=== PATIENT | male | born 1960 | race Caucasian/White ===

== ENCOUNTER 2018-01-10 07:47 | Day surgery (SDC) | payer OTHER ==
[2018-01-10 09:43] LABS: ADD MAN DIFF? NO
[2018-01-10 09:54] LABS: BASOPHILS % 0.6 % (0.0-2.0); EOSINOPHILS % 0.4 % (0.0-7.0); HEMATOCRIT 47.1 % (42.0-52.0); HEMOGLOBIN 16.2 g/dl (14.0-18.0); LYMPHOCYTES # 1.9 10^3/ul (0.8-2.9); LYMPHOCYTES % 37.4 % (15.0-51.0); MEAN CORPUSCULAR HGB CONC 34.4 g/dl (32.0-37.0); MEAN CORPUSCULAR VOLUME 87.2 fl (82.0-101.0); MEAN PLATELET VOLUME 9.4 fl (7.4-10.4); MONOCYTE # 0.4 10^3/ul (0.3-0.9); MONOCYTES % 7.4 % (0.0-11.0); NEUTROPHIL # 2.7 10^3/ul (1.6-7.5); NEUTROPHILS % 53.8 % (39.0-77.0); PLATELET COUNT 288 10^3/UL (140-415)
[2018-01-10] MEDS ORDERED: CEFAZOLIN 2 GM/50 ML (PMX) 50 ML IVPB (10:00)
[2018-01-10] MEDS ORDERED: SOD CHLORIDE 0.9% 1,000 ML IV (10:00)
[2018-01-10 10:14] LABS: PROTIME 13.3 Sec (11.9-14.9)
[2018-01-10 10:15] LABS: PARTIAL THROMBOPLASTIN TIME 32.9 Sec (25.0-35.0)
[2018-01-10 10:17] LABS: ALANINE AMINOTRANSFERASE 53 IU/L (13-69); ALBUMIN 4.1 g/dl (3.3-4.9); ALBUMIN/GLOBULIN RATIO 1.32; ALKALINE PHOSPHATASE 68 IU/L (42-121); ANION GAP 11 (8-16); ASPARTATE AMINO TRANSFERASE 31 IU/L (15-46); BILIRUBIN,INDIRECT 2.4 mg/dl (0-1.1); BILIRUBIN,TOTAL 2.4 mg/dl (0.2-1.3); BLOOD UREA NITROGEN 18 mg/dl (7-20); CALCIUM 9.5 mg/dl (8.4-10.2); CARBON DIOXIDE 29 mmol/L (21-31); CHLORIDE 108 mmol/L (97-110); CREATININE 0.74 mg/dl (0.61-1.24); GLUCOSE 111 mg/dl (70-220); POTASSIUM 3.9 mmol/L (3.5-5.1); SODIUM 144 mmol/L (135-144); TOTAL PROTEIN 7.2 g/dl (6.1-8.1)
[2018-01-10] MEDS ORDERED: ROCURONIUM 50 MG INJ (10:42)
[2018-01-10] MEDS ORDERED: LIDOCAINE 2% (SDV) 5 ML INJ (10:42)
[2018-01-10] MEDS ORDERED: PROPOFOL 20 ML (10:42)
[2018-01-10] MEDS ORDERED: MIDAZOLAM 1 MG/ML 2 ML INJ (10:42)
[2018-01-10] MEDS ORDERED: DEXAMETHASONE 4 MG/ML 1 ML INJ ×2 (10:44→12:10)
[2018-01-10] MEDS ORDERED: ROPIVACAINE 0.2% 20 ML VIAL (10:44)
[2018-01-10] MEDS ORDERED: POLYMYXIN/BACITRACIN 1L IRRIG (11:38)
[2018-01-10] MEDS ORDERED: ONDANSETRON 4 MG INJ (12:10)
[2018-01-10] MEDS ORDERED: FAMOTIDINE 20 MG INJ (12:10)
[2018-01-10] MEDS: BUPIVACAINE 0.5%/EPI (SDV) 30 ML INJ (12:15)
[2018-01-10] MEDS ORDERED: PHENYLephrine (100 MCG/ML) 5ML SYG (12:27)
[2018-01-10] MEDS ORDERED: SUGAMMADEX SODIUM 200 MG/2 ML VIAL IV (12:58)
[2018-01-10] MEDS ORDERED: HYDROmorphONE (0.2 MG/ML) 10ML SYG IV ×2 (13:00)
[2018-01-10] MEDS ORDERED: hydrALAzine 20 MG INJ IV (13:00)
[2018-01-10] MEDS ORDERED: LABETALOL HCL 20MG INJ IV (13:00)
[2018-01-10] MEDS ORDERED: HYDROCODONE/APAP (5/325) TAB PO ×2 (13:30)
[2018-01-10] MEDS ORDERED: KETOROLAC 30 MG INJ IV (13:30)
[2018-01-10] MEDS ORDERED: morphine 2 MG INJ IV (13:30)
[2018-01-10] MEDS: ONDANSETRON 4 MG INJ IV (15:06)
[2018-01-11] MEDS ORDERED: IBUPROFEN 600 MG TAB PO (06:00)
== END 2018-01-10 16:09 | disposition home or self-care (01) ==
LOC: SDS 07:47
DX: K42.9 Umbilical hernia without obstruction or gangrene (principal); I10 Essential (primary) hypertension; F17.200 Nicotine dependence, unspecified, uncomplicated
CPT/HCPCS: 49585; 71045; 80053; 85025; 85610; 85730; 93005